=== PATIENT | male | born 1970 | race Two or more races ===

== ENCOUNTER 2022-03-08 23:09 | Emergency (ER) | payer MEDICAID ==
[~2022-03-08] VITALS: Ht 180.3 cm; Wt 80.0 kg
[2022-03-08] MEDS ORDERED: NALOXONE HCL 0.4 MG/ML 1ML VIAL IV STA (23:18)
[2022-03-08] MEDS ORDERED: SODIUM CHLORIDE 0.9% 1,000 ML IV ONE (23:30)
[2022-03-08] MEDS ORDERED: NALOXONE HCL 0.4 MG/ML 1ML VIAL IV ONE ×2 (23:30)
[2022-03-08 23:35] LABS: BASOPHILS % 0.4 % (0.0-2.0); EOSINOPHILS % 0.5 % (0.0-5.0); HEMATOCRIT. 41.5 % (42.0-52.0); HEMOGLOBIN. 13.8 g/dL (14.0-18.0); LYMPHOCYTES % 41.6 % (20.0-50.0); MEAN CORPUSCULAR HEMOGLOBIN 31.8 pg (28.0-32.0); MEAN CORPUSCULAR VOLUME 95.6 fL (80.0-94.0); MEAN PLATELET VOLUME 6.3 fl (7.4-10.4); NEUTROPHILS % 51.5 % (40.0-76.0); PLATELET 333 x1000/uL (130-400); RED BLOOD CELL COUNT 4.34 mill/uL (4.7-6.1)
[2022-03-08 23:39] LABS: CHLORIDE 105 mEq/L (98-107)
[2022-03-08 23:56] LABS: CREATINE KINASE 204 IU/L (39-308); ETHANOL BLOOD < 10 mg/dL
[2022-03-09] MEDS ORDERED: NALOXONE HCL 1 MG/ML 2ML VIAL IV ONE ×2 (01:00→04:00)
[2022-03-09 12:47] VITALS: BP 132/84
== END 2022-03-09 12:48 | disposition left against medical advice (07) ==
LOC: ER 23:09 → EDBEDREQSVC 03-09 05:08 → EDBEDREQ 03-09 05:08 → EDBEDREQTM 03-09 05:08 → ER 03-09 12:48 → CANBEDREQ 03-09 13:09
DX: T40.601A Poisoning by unspecified narcotics, accidental (unintentional), initial encounter (principal); Y92.89 Other specified places as the place of occurrence of the external cause; F14.10 Cocaine abuse, uncomplicated
CPT/HCPCS: 36415; 71045; 80053; 80307; 80320; 80329; 82550; 83690; 84443; 85025; 93005; 96374; 96376; 99291; J2310; J7030; G0480